=== PATIENT | male | born 1950 | race Caucasian/White ===

== ENCOUNTER 2016-07-30 09:20 | Day surgery (SDC) | payer BC ==
--- NOTE | 2016-07-27 13:11 | HISTORY AND PHYSICAL E ---
History and Physical NAME: OZZY PINEDA : 1950 AGE: 66Y ADMITTED: 07/30/2016 ROOM: CHIEF COMPLAINT: Colon screening, blood in the stool. HISTORY OF PRESENT ILLNESS: On review of records, I saw the patient in 1996, where he did have upper endoscopy. He did have mild esophageal stricture, esophagitis, duodenitis. He does have a small hiatal hernia. The patient did have a colonoscopy in 2001, which showed 2 mm polyp rectosigmoid junction and the polyp was a hyperplastic polyp. The patient did have another colonoscopy in 2003, which showed the following: Hemorrhoids, no malignancy. MEDICATIONS: 1. Prilosec. 2. Diltiazem. 3. Testosterone. FAMILY HISTORY: Father ; he was a smoker. The patient's mom had COPD, emphysema. REVIEW OF SYSTEMS: ENDOCRINE: Diabetes. CARDIAC: Hypertension. RESPIRATORY: COPD. GASTROINTESTINAL: Abdominal pain, blood in the stool, constipation, bloating. MUSCULOSKELETAL: Arthritis. PHYSICAL EXAMINATION: VITAL SIGNS: Blood pressure 130/80, pulse 80, respirations 20, temp i 98. HEAD, EYES, EARS, NOSE, THROAT: Normal. ABDOMEN: Soft. NEUROLOGIC: Exam negative. CONCLUSION: Colon screening. DICTATING PHYSICIAN: JEFFERSON TALLEY M.D. [id number] [facility]#: [id number] ID: [id number] JOB#: [id number] ACCT: [id number] cc:RANDI CHRISTINA M.D., MAHMOUD M.D. >
[~2016-07-30 09:20] MED LIST: EPINEPHRINE INJ 1 MG/10 ML DISP.SYRIN ONE; FLUMAZENIL INJ 0.5 MG/5 ML VIAL IV ONE; GLUCAGON,HUMAN RECOMB 1 MG INJ ONE; GLYCOPYRROLATE INJ 0.4 MG/2 ML VIAL ONE; LIDOCAINE 2% JELLY 30 ML TUBE ONE; NALOXONE HCL INJ/PF 0.4 MG/1 ML SDV ONE; ONDANSETRON HCL INJ/PF 4 MG/2 ML SDV ONE; PROMETHAZINE HCL INJ 25 MG/1 ML VIAL ONE
[2016-07-30] MEDS: MIDAZOLAM 2 MG/2 ML INJ ONE ×2 (10:20→10:30)
[2016-07-30] MEDS: FENTANYL CITRATE INJ/PF 100 MCG/2 ML AMPUL ONE ×2 (10:22→10:32)
[2016-07-30 11:46] LABS: ABSOLUTE EOSINOPHILS # (AUTO) 0.1 10^3/uL (0.0-0.6); ABSOLUTE LYMPHOCYTES (AUTO) 1.1 10^3/uL (0.5-4.7); ABSOLUTE MONOCYTES (AUTO) 0.6 10^3/uL (0.1-1.4); BASOPHILS % (AUTO) 0.5 % (0-2); EOSINOPHILS % (AUTO) 0.8 % (0-6); HEMATOCRIT 48.5 % (37.9-51.0); HGB HCT DIFFERENCE -0.5; LYMPHOCYTES % (AUTO) 12.3 % (13-45); MEAN CORPUSCULAR HEMOGLOBIN 28.6 pg (27.0-33.4); MEAN CORPUSCULAR HGB CONC 32.9 g/dL (32.0-36.0); MEAN CORPUSCULAR VOLUME 87 fl (80-97); MONOCYTES % (AUTO) 6.9 % (3-13); RED BLOOD COUNT 5.59 10^6/uL (4.35-5.55); RED CELL DISTRIBUTION WIDTH 13.8 % (11.5-14.0); SEGMENTED NEUTROPHILS % (AUTO) 79.5 % (42-78); WHITE BLOOD COUNT 8.8 10^3/uL (4.0-10.5)
[2016-07-30 11:50] VITALS: BP 125/66
--- NOTE | 2016-07-30 18:11 | OPERATIVE REPORT E ---
Operative Report NAME: OZZY PINEDA : 1950 AGE: 66Y DATE OF SURGERY: 07/30/2016 ROOM: PREOPERATIVE DIAGNOSIS: COLON SCREENING. POSTOPERATIVE DIAGNOSES: 1. EXTERNAL HEMORRHOID. 2. A 1 TO 2 MM ANAL POLYP. OPERATION: Colonoscopy. SURGEON: JEFFERSON TALLEY M.D. TISSUE REMOVED OR ALTERED: None. PROCEDURE: External hemorrhoids and 1 mm anal polyp small to biopsy. Sigmoid descending colon; normal. Transverse colon; normal. Ascending colon; normal. Cecum; normal. Scope withdrawn cecum, ascending, transverse, descending, sigmoid all the way to the rectum. CONCLUSIONS: 1. Colon screening. 2. External hemorrhoid. 3. Mild 1 mm diminutive polyp in the anorectal junction, small to biopsy. DISCHARGE PLAN: Soft diet. Hold aspirin 3 days. Baseline CBC. Consider followup colonoscopy 3 years. DICTATING PHYSICIAN: JEFFERSON TALLEY M.D. [id number] PHY#: [id number] ID: [id number] JOB#: [id number] ACCT: [id number] cc:RANDI CHRISTINA M.D., MAHMOUD M.D. >
--- NOTE | 2016-07-30 18:14 | DISCHARGE SUMMARY E ---
Discharge Summary NAME: OZZY PINEDA : 1950 AGE: 66Y ADMITTED: 07/30/2016 DISCHARGED: 07/30/2016 The patient is 66. He presented for colon screening. Today's colonoscopy shows external hemorrhoids and 2 mm diminutive anal polyp too small to biopsy. DISCHARGE PLAN: 1. Soft diet. 2. Hold aspirin for 3 days. 3. Baseline CBC. 4. Consider followup colonoscopy in 5 years. DICTATING PHYSICIAN: JEFFERSON TALLEY M.D. [id number] PHY#: [id number] ID: [id number] JOB#: [id number] ACCT: [id number] cc:JEFFERSON TALLEY M.D. >
== END 2016-07-30 11:50 | disposition home or self-care (01) ==
LOC: END 09:20
PROVIDERS: ATTEND Specialist
PROC: 0DJD8ZZ Inspection of Lower Intestinal Tract, Via Natural or Artificial Opening Endoscopic (ICD-10-PCS; principal; 2016-07-30 10:00)
DX: Z12.11 Encounter for screening for malignant neoplasm of colon (principal); K62.0 Anal polyp; K64.4 Residual hemorrhoidal skin tags; E11.9 Type 2 diabetes mellitus without complications; I10 Essential (primary) hypertension; J44.9 Chronic obstructive pulmonary disease, unspecified; M19.90 Unspecified osteoarthritis, unspecified site; Z79.899 Other long term (current) drug therapy
CPT/HCPCS: 45378; 36415; 85025; J2250; J3010; J1610; J2405; J0171; J2310; J2550; J3490

== ENCOUNTER → 2016-08-05 | Outpatient (CLI) | payer BC | LOC: OD 13:43 | PROVIDERS: ATTEND Specialist | DX: K90.0 Celiac disease (principal) | CPT/HCPCS: 36415; 83520 ==

== ENCOUNTER 2017-02-04 09:23 | Day surgery (SDC) | payer BC ==
--- NOTE | 2017-01-28 10:22 | HISTORY AND PHYSICAL E ---
History and Physical NAME: OZZY PINEDA : 1950 AGE: 66Y ADMITTED: 02/04/2017 ROOM: CHIEF COMPLAINT: Abdominal pain, hiatal hernia, reflux. HISTORY: Patient scheduled for 02/04 regarding upper endoscopy. The patient referred to us by [facility]. The patient is complaining of blood in the stool, abdominal pain, hemorrhoids. He did have upper scope in 1996, and colonoscope in 2000. His colonoscopy in 2016 showed external hemorrhoids, diminutive polyps. SOCIAL HISTORY: Quit smoking. He drinks 3 beers a day. PHYSICAL EXAMINATION: VITAL SIGNS: Blood pressure 130/80. ABDOMEN: Soft. CONCLUSION: 1. Gastroesophageal reflux. 2. Abdominal pain. 3. Serology for celiac was negative. PLAN: Upper endoscopy. Patient advised to stop using alcohol and beer, and patient scheduled for upper endoscopy. Scheduled for upper scope on 02/04. DICTATING PHYSICIAN: JEFFERSON TALLEY M.D. [id number] PHY#: [id number] ID: [id number] JOB#: [id number] ACCT: [id number] cc:RANDI CHRISTINA M.D., MAHMOUD M.D. >
[2017-02-04] MEDS ORDERED: NALOXONE HCL INJ/PF 0.4 MG/1 ML SDV ONE (10:24)
[2017-02-04] MEDS ORDERED: ONDANSETRON HCL INJ/PF 4 MG/2 ML SDV ONE (10:24)
[2017-02-04] MEDS ORDERED: GLYCOPYRROLATE INJ 0.4 MG/2 ML VIAL ONE (10:24)
[2017-02-04] MEDS ORDERED: MIDAZOLAM 2 MG/2 ML INJ ONE (10:25)
[2017-02-04] MEDS ORDERED: EPINEPHRINE INJ 1 MG/10 ML DISP.SYRIN ONE (10:26)
[2017-02-04] MEDS ORDERED: FLUMAZENIL INJ 0.5 MG/5 ML VIAL ONE (10:26)
[2017-02-04] MEDS: MIDAZOLAM 2 MG/2 ML INJ ONE ×2 (10:49→10:54)
[2017-02-04] MEDS: FENTANYL CITRATE INJ/PF 100 MCG/2 ML AMPUL ONE ×2 (10:51→10:56)
[2017-02-04 11:48] VITALS: BP 114/72
--- NOTE | 2017-02-04 12:09 | DISCHARGE SUMMARY E ---
Discharge Summary NAME: OZZY PINEDA : 1950 AGE: 66Y ADMITTED: 02/04/2017 DISCHARGED: 02/04/2017 PROCEDURE: EGD. HOSPITAL COURSE: The patient is 66 years old, presented with abdominal pain, underwent upper endoscopy today that shows no ulcers. He did have mild esophagitis, gastritis, duodenitis. H. pylori gastric biopsy obtained, results pending. Patient is allergic to PENICILLIN. The patient had recent colonoscopy in 2006 that shows diminutive polyps and hemorrhoids, external. He presented to us with abdominal pain. Serology for celiac disease negative. CONCLUSION: Upper endoscopy showing esophagitis, gastritis, duodenitis. I did not see definite hernia on today's exam. DISCHARGE PLAN: Continue Prilosec. Awaiting biopsy results. Followup office visit in the next few days. DICTATING PHYSICIAN: JEFFERSON TALLEY M.D. [id number] PHY#: [id number] ID: [id number] JOB#: [id number] ACCT: [id number] cc:RANDI CHRISTINA M.D., MAHMOUD M.D. >
--- NOTE | 2017-02-04 12:10 | OPERATIVE REPORT E ---
Operative Report NAME: OZZY PINEDA : 1950 AGE: 66Y DATE OF SURGERY: 02/04/2017 ROOM: PREOPERATIVE DIAGNOSIS: Abdominal pain and reflux. POSTOPERATIVE DIAGNOSES: 1. Esophagitis, mild. 2. Gastritis, mild. 3. Duodenitis, mild. PROCEDURE: Esophagoscopy, gastroscopy, duodenoscopy. SURGEON: JEFFERSON TALLEY M.D. ANESTHESIA: Versed 4 and Fentanyl 100 mcg. TISSUE REMOVED OR ALTERED: Gastric biopsy for H. pylori. DESCRIPTION OF PROCEDURE: The baby scope passed under guided vision, no difficulties. Esophagoscopy: Junction at 40. Gastroscopy: No ulcers. Diffuse gastritis. Biopsy obtained for H. pylori. Duodenoscopy: Duodenal bulb shows edematous folds consistent with duodenitis. CONCLUSIONS: 1. Patient did have esophagitis, gastritis, duodenitis. 2. Upper endoscopy shows no ulcers, no malignancy, no varices, no bleeding. PLAN: 1. Hold aspirin and nonsteroidals. 2. Continue PPI. 3. Patient to see us in the office in the next few days. DICTATING PHYSICIAN: JEFFERSON TALLEY M.D. [id number] [id number] PHY#: [id number] ID: [id number] JOB#: [id number] ACCT: [id number] cc:RANDI CHRISTINA M.D., MAHMOUD M.D. >
== END 2017-02-04 12:10 | disposition home or self-care (01) ==
LOC: END 09:23
PROVIDERS: ATTEND Specialist
PROC: 0DB68ZX Excision of Stomach, Via Natural or Artificial Opening Endoscopic, Diagnostic (ICD-10-PCS; principal; 2017-02-04 10:00)
DX: K20.9 Esophagitis, unspecified (principal); K29.80 Duodenitis without bleeding; K29.70 Gastritis, unspecified, without bleeding; Z88.0 Allergy status to penicillin; Z87.891 Personal history of nicotine dependence
CPT/HCPCS: 43239; 88305 ×2; J2250; J3010; J2405; J0171; J2310; J3490

== ENCOUNTER 2017-05-23 22:02 | Emergency (ER) | payer BC ==
[2017-05-24] MEDS ORDERED: DEXAMETHASONE SOD PHOS INJ 10 MG/1 ML VIAL IV ONE (00:51)
[2017-05-24] MEDS ORDERED: PROCHLORPERAZINE EDISYLATE INJ 10 MG/2 ML VIAL IV ONE (00:51)
[2017-05-24] MEDS ORDERED: DIPHENHYDRAMINE HCL 50 MG/ML VIAL IV ONE (00:51)
--- NOTE | 2017-05-24 00:51 | ER Document Report ---
ED General - General Chief Complaint: Headache Stated Complaint: HEADACHE Time Seen by Provider: 05/24/17 00:26 Notes: Patient is a 67-year-old male with a past medical history of hypertension, headaches, who presents with 3 days of intermittent headaches that have become progressively worse. Patient reports over the past 3 days he has had a dull, intermittent pain to the bilateral occipital and temporal scalp that is throbbing and moderate to severe in intensity. He notes that movement, light and sounds worsen the headache. He has tried Tylenol with no improvement of the pain. He states this is very similar to prior headaches he has had in the past. He has not seen his primary care doctor regarding today's concerns. He denies any associated fever, neck pain, altered mental status, weakness, numbness, vomiting, or recent head or neck trauma. No history of aneurysms. TRAVEL OUTSIDE OF THE [place] IN LAST 30 DAYS: No - Related Data Allergies/Adverse Reactions: Penicillins Allergy (Intermediate, Verified 05/23/17 22:03) NAUSEA, FLU LIKE SYMPTOMS aspirin Allergy (Verified 05/23/17 22:03) Past Medical History - General Information source: Patient - Social History Smoking Status: Former Smoker Frequency of alcohol use: None Drug Abuse: None Lives with: Spouse/Significant other Family History: Reviewed & Not Pertinent - Past Medical History Cardiac Medical History: Reports: Hx Hypertension - ON MEDS Denies: Hx Coronary Artery Disease, Hx Heart Attack Pulmonary Medical History: Reports: Hx Bronchitis, Hx COPD - HX SMOKING, QUIT SMOKING, Hx Pneumonia Denies: Hx Asthma Neurological Medical History: Denies: Hx Cerebrovascular Accident, Hx Seizures GI Medical History: Reports: Hx Gastroesophageal Reflux Disease Musculoskeltal Medical History: Reports Hx Arthritis - OSTEOARTHRITIS - Immunizations Hx Diphtheria, Pertussis, Tetanus Vaccination: No - CAN'T REMEMBER WHEN HE HAD HIS PNEUMONIA. Review of Systems - Review of Systems Notes: Constitutional: Negative for fever. HENT: Negative for sore throat. Eyes: Negative for visual changes. Cardiovascular: Negative for chest pain. Respiratory: Negative for shortness of breath. Gastrointestinal: Negative for abdominal pain, vomiting or diarrhea. Genitourinary: Negative for dysuria. Musculoskeletal: Negative for back pain. Skin: Negative for rash. Neurological: Positive for headaches 10 point ROS negative except as marked above and in HPI. Physical Exam - Vital signs Vitals: Temp Pulse Resp BP Pulse Ox 97.8 F 64 16 163/77 H 98 05/23/17 22:22 05/23/17 22:22 05/23/17 22:22 05/23/17 22:22 05/23/17 22:22 Interpretation: Normal Notes: PHYSICAL EXAMINATION: GENERAL: Well-appearing, well-nourished and in no acute distress. HEAD: Atraumatic, normocephalic. EYES: Pupils equal round and reactive to light, extraocular movements intact, sclera anicteric, conjunctiva are normal. ENT: nares patent, oropharynx clear without exudates. Moist mucous membranes. NECK: Normal range of motion, supple without lymphadenopathy LUNGS: Breath sounds clear to auscultation bilaterally and equal. No wheezes rales or rhonchi. HEART: Regular rate and rhythm without murmurs ABDOMEN: Soft, nontender, normoactive bowel sounds. No guarding, no rebound. No masses appreciated. EXTREMITIES: Normal range of motion, no pitting or edema. No cyanosis. NEUROLOGICAL: Face symmetric. Tongue protrudes midline. Extraocular motions intact. Pupils are 2 mm and equally reactive. Normal speech, normal gait. 5 out of 5 strength in both the distal and proximal upper and lower extremities bilaterally. Sensation is grossly intact throughout. Finger to nose testing normal. Pronator drift normal.. PSYCH: Normal mood, normal affect. SKIN: Warm, Dry, normal turgor, no rashes or lesions noted. Course - Re-evaluation Re-evalutation: 05/24/17 00:51 Presentation of a headache that appears to be most consistent with tension versus migrainous type headache. Headache was not maximal in onset, patient has no focal neurologic deficits, no nuchal rigidity, vital signs within normal limits, no papilledema, and patient is overall well in appearance. Based on clinical history and examination I do not suspect an acute subarachnoid hemorrhage, dural venous sinus thrombosis, acute meningitis, or intercranial mass. Given my low clinical suspicion for any acute life-threatening etiology, I do not feel advanced neuro imaging or laboratory testing is indicated at this time. Will proceed with headache cocktail and reassess. 05/24/17 02:28 Patient has had complete resolution of his headache. Neuro exam remains unremarkable. At this time will discharge with return precautions and follow- up recommendations. Verbal discharge instructions given a the bedside and opportunity for questions given. Medication warnings reviewed. Patient is in agreement with this plan and has verbalized understanding of return precautions and the need for primary care follow-up in the next 24-72 hours. - Vital Signs Vital signs: Temp Pulse Resp BP Pulse Ox 97.8 F 64 16 163/77 H 98 05/23/17 22:22 05/23/17 22:22 05/23/17 22:22 05/23/17 22:22 05/23/17 22:22 Discharge - Discharge Clinical Impression: Headache Qualifiers: Headache type: unspecified Headache chronicity pattern: acute headache Intractability: not intractable Qualified Code(s): R51 - Headache Condition: Good Disposition: HOME, SELF-CARE Additional Instructions: You have been seen in the Emergency Department (ED) for a headache. Please use Tylenol (acetaminophen) or Motrin (ibuprofen) as needed for symptoms, but only as written on the box. As we have discussed, please follow up with your primary care doctor as soon as possible regarding today's ED visit and your headache symptoms. Call your doctor or return to the ED if you have a worsening headache, sudden and severe headache, confusion, slurred speech, facial droop, weakness or numbness in any arm or leg, extreme fatigue, or other symptoms that concern you. Referrals: RANDI CHRISTINA MD [Primary Care Provider] - Follow up as needed
[2017-05-24 02:33] VITALS: BP 154/75
== END 2017-05-24 02:33 | disposition home or self-care (01) ==
LOC: ER 22:02
DX: R51 Headache (principal); I10 Essential (primary) hypertension; J44.9 Chronic obstructive pulmonary disease, unspecified; Z88.0 Allergy status to penicillin; Z88.6 Allergy status to analgesic agent; Z87.891 Personal history of nicotine dependence
CPT/HCPCS: 99284; 96374; 96375; J1200; J0780; J1100

== ENCOUNTER 2017-07-10 20:45 | Emergency (ER) | payer BC ==
[2017-07-10] MEDS ORDERED: IPRATROPIUM/ALBUTEROL 0.5-2.5 MG/3 ML AMPUL NEB ONE (22:14)
--- NOTE | 2017-07-10 22:20 | ER Document Report ---
ED Respiratory Problem - General Chief Complaint: Chest Tightness Stated Complaint: SHORTNESS OF BREATH Time Seen by Provider: 07/10/17 21:32 Mode of Arrival: Ambulatory Information source: Patient TRAVEL OUTSIDE OF THE [place] IN LAST 30 DAYS: No - HPI Patient complains to provider of: Short of breath Onset: Yesterday Duration: Intermittent episodes Initiating Event: URI - "BRONCHITIS" 1 WEEK AGO, FINISHED [id number] Quality of pain: Other - "TIGHTNESS, LIKE AIRWAYS ARE CONSTRICTED" Severity: Mild Context: Hx COPD Cough: Nonproductive At home treatment: Bronchodilators. denies: Inhaled steroids, Oral steroids, Oxygen Associated symptoms: Chills Similar symptoms previously: Yes - NOT RECENT Recently seen / treated by doctor: Yes - LAST WEEK - Related Data Allergies/Adverse Reactions: Penicillins Allergy (Intermediate, Verified 05/23/17 22:03) NAUSEA, FLU LIKE SYMPTOMS aspirin Allergy (Verified 05/23/17 22:03) Past Medical History - General Information source: Patient - Social History Smoking Status: Former Smoker Cigarette use (# per day): No Chew tobacco use (# tins/day): No Frequency of alcohol use: None Drug Abuse: None Lives with: Spouse/Significant other Family History: Reviewed & Not Pertinent Patient has suicidal ideation: No Patient has homicidal ideation: No - Past Medical History Cardiac Medical History: Reports: Hx Hypertension - ON MEDS Denies: Hx Coronary Artery Disease, Hx Heart Attack Pulmonary Medical History: Reports: Hx Bronchitis, Hx COPD - HX SMOKING, QUIT SMOKING, Hx Pneumonia Denies: Hx Asthma Neurological Medical History: Denies: Hx Cerebrovascular Accident, Hx Seizures Endocrine Medical History: Reports: None Renal/ Medical History: Reports: None. Denies: Hx Peritoneal Dialysis Malignancy Medical History: Reports None GI Medical History: Reports: Hx Gastroesophageal Reflux Disease Musculoskeltal Medical History: Reports Hx Arthritis - OSTEOARTHRITIS Psychiatric Medical History: Reports: None Surgical Hx: Negative - Immunizations Hx Diphtheria, Pertussis, Tetanus Vaccination: No - CAN'T REMEMBER WHEN HE HAD HIS PNEUMONIA. Review of Systems - Review of Systems Constitutional: Chills EENT: No symptoms reported Cardiovascular: No symptoms reported Respiratory: See HPI Gastrointestinal: No symptoms reported Genitourinary: No symptoms reported Musculoskeletal: Back pain - CHRONIC Skin: No symptoms reported Neurological/Psychological: No symptoms reported Physical Exam - Vital signs Vitals: Temp Pulse Resp BP Pulse Ox 98.0 F 82 18 154/85 H 96 07/10/17 21:01 07/10/17 21:01 07/10/17 21:01 07/10/17 21:01 07/10/17 21:01 Interpretation: Hypertensive. No: Tachycardic, Hypoxic, Tachypneic, Febrile - General General appearance: Appears well, Alert In distress: None - HEENT Head: Normocephalic Eyes: Normal Conjunctiva: Normal Ears: Normal Nasal: Normal Mouth/Lips: Normal Mucous membranes: Normal - Respiratory Respiratory status: No respiratory distress Breath sounds: Normal, Other - RARE INSP. CRACKLES IN DEPENDENT AREAS, CLEARED AFTER COUGHING. - Cardiovascular Rhythm: Regular Heart sounds: Normal auscultation Murmur: No - Abdominal Inspection: Normal Distension: No distension - Extremities General upper extremity: Normal inspection General lower extremity: Normal inspection. No: Edema - Neurological Neuro grossly intact: Yes Cognition: Normal Orientation: AAOx4 - Psychological Associated symptoms: Normal affect, Normal mood - Skin Skin Temperature: Warm Skin Moisture: Dry Skin Color: Normal Skin Turgor: Elastic Course - Vital Signs Vital signs: Temp Pulse Resp BP Pulse Ox 98.0 F 82 18 154/85 H 96 07/10/17 21:01 07/10/17 21:01 07/10/17 21:01 07/10/17 21:01 07/10/17 21:01 - Laboratory Result Diagrams: 07/10/17 22:20 07/10/17 22:20 Laboratory results interpreted by me: 07/10/17 07/10/17 22:20 22:20 RDW 14.5 H ALT 20 L - Diagnostic Test Radiology reviewed: Image reviewed, Reports reviewed - EKG Interpretation by Id EKG shows normal: Sinus rhythm, [place], Intervals, QRS Complexes, ST-T Waves Rate: Normal Rhythm: NSR Discharge - Discharge Clinical Impression: Bronchitis with bronchospasm Condition: Stable Disposition: HOME, SELF-CARE Instructions: Bronchitis With Bronchospasm (Wheezing) ([facility]), Inhaled Bronchodilators ([facility]), Corticosteroid Medication ([facility]) Additional Instructions: CONTINUE USING YOUR ALBUTEROL INHALER, 2 PUFFS EVERY 4-6 HOURS NEEDED. TAKE PREDNISONE DIRECTED, BEGINNING TOMORROW (TUESDAY). FOLLOW UP WITH YOUR PRIMARY CARE PROVIDER NEEDED. RETURN TO E.R. FOR RE-EVALUATION IF YOU GET WORSE, ANY TIME. Prescriptions: Prednisone [Deltasone 10 mg Tablet] 10 mg PO ASDIR PRN #21 tablet PRN Reason: Referrals: RANDI CHRISTINA MD [Primary Care Provider] - Follow up as needed
[2017-07-10 22:40] LABS: ABSOLUTE BASOPHILS # (AUTO) 0.1 10^3/uL (0.0-0.2); ABSOLUTE EOSINOPHILS # (AUTO) 0.1 10^3/uL (0.0-0.6); ABSOLUTE LYMPHOCYTES (AUTO) 1.5 10^3/uL (0.5-4.7); ABSOLUTE MONOCYTES (AUTO) 0.8 10^3/uL (0.1-1.4); ABSOLUTE NEUT (AUTO) 6.9 10^3/uL (1.7-8.2); BASOPHILS % (AUTO) 1.1 % (0-2); EOSINOPHILS % (AUTO) 1.2 % (0-6); HEMATOCRIT 43.4 % (37.9-51.0); HEMOGLOBIN 14.3 g/dL (13.5-17.0); MEAN CORPUSCULAR HEMOGLOBIN 28.3 pg (27.0-33.4); MEAN CORPUSCULAR VOLUME 86 fl (80-97); MONOCYTES % (AUTO) 8.6 % (3-13); PLATELET COUNT 254 10^3/uL (150-450); RED BLOOD COUNT 5.06 10^6/uL (4.35-5.55); RED CELL DISTRIBUTION WIDTH 14.5 % (11.5-14.0); SEGMENTED NEUTROPHILS % (AUTO) 73.1 % (42-78); TOTAL CELLS COUNTED % (AUTO) 100 %; WHITE BLOOD COUNT 9.5 10^3/uL (4.0-10.5)
[2017-07-10 22:49] LABS: ALANINE AMINOTRANSFERASE 20 U/L (21-72); ALBUMIN 4.1 g/dL (3.5-5.0); ALKALINE PHOSPHATASE 69 U/L (38-126); ANION GAP 12 (5-19); ASPARTATE AMINO TRANSFERASE 23 U/L (17-59); BILIRUBIN,DIRECT 0.3 mg/dL (0.0-0.4); BILIRUBIN,TOTAL 0.3 mg/dL (0.2-1.3); BLOOD UREA NITROGEN 20 mg/dL (7-20); CALCIUM 8.9 mg/dL (8.4-10.2); CARBON DIOXIDE 25 mmol/L (22-30); CHLORIDE 106 mmol/L (98-107); GLUCOSE 109 mg/dL (75-110); POTASSIUM 3.8 mmol/L (3.6-5.0); SODIUM 142.7 mmol/L (137-145); TOTAL PROTEIN 6.8 g/dL (6.3-8.2)
--- NOTE | 2017-07-10 23:26 | RADIOLOGY REPORT (SQ) ---
EXAM DESCRIPTION: CHEST PA/LAT COMPLETED DATE/TIME: 07/10/2017 10:58 pm REASON FOR STUDY: DYSPNEA COMPARISON: 01/22/2014 EXAM PARAMETERS: NUMBER OF VIEWS: two views TECHNIQUE: Digital Frontal and Lateral radiographic views of the chest acquired. RADIATION DOSE: NA LIMITATIONS: none FINDINGS: LUNGS AND PLEURA: No consolidation, masses or pneumothorax. Similar chronic interstitial markings. No pleural effusion. MEDIASTINUM AND HILAR STRUCTURES: Stable. HEART AND VASCULAR STRUCTURES: Heart normal size. No evidence for failure. BONES: No acute findings. HARDWARE: None in the chest. OTHER: No other significant finding. IMPRESSION: No acute findings. TECHNICAL DOCUMENTATION: JOB ID: [id number] [id number] 2010 [employer]- All Rights Reserved
[2017-07-11] MEDS ORDERED: DEXAMETHASONE 4 MG TABLET PO ONE (00:03)
[2017-07-11 00:43] VITALS: BP 147/83
--- NOTE | 2017-07-11 01:32 | EKG REPORT ---
SEVERITY:- NORMAL ECG - SINUS RHYTHM : Confirmed by: Olivia Mark MD 11-Jul-2017 01:31:12
--- NOTE | 2017-07-14 10:46 | EKG REPORT ---
SEVERITY:- NORMAL ECG - SINUS RHYTHM : Confirmed on behalf of: Clay Cook MD 14-Jul-2017 10:45:25
== END 2017-07-11 00:43 | disposition home or self-care (01) ==
LOC: ER 20:45
DX: J20.9 Acute bronchitis, unspecified (principal); R07.9 Chest pain, unspecified; J44.9 Chronic obstructive pulmonary disease, unspecified; R68.83 Chills (without fever); Z88.0 Allergy status to penicillin; Z88.6 Allergy status to analgesic agent; I10 Essential (primary) hypertension
CPT/HCPCS: 94640; 99285; 36415; 85025; 80053; 71046; 93005; J7620; 93010

== ENCOUNTER → 2018-05-12 | Outpatient (CLI) | payer BC ==
--- NOTE | 2018-05-12 16:54 | RADIOLOGY REPORT (SQ) ---
EXAM DESCRIPTION: CT CHEST WITHOUT COMPLETED DATE/TIME: 05/12/2018 3:13 pm REASON FOR STUDY: J44.9 CHRONIC OBSTRUCTIVE PULMONARY DISEASE, UNSPECIFIED Z72.0 TOBACCO USE J44.9 CHRONIC OBSTRUCTIVE PULMONARY DISEASE, UNSPECIFIED COMPARISON: Chest films 07/10/2017, 01/22/2014 TECHNIQUE: CT scan performed of the chest without intravenous contrast. Images reviewed with lung, soft tissue and bone windows. Reconstructed coronal and sagittal MPR images reviewed. All images st ored on PACS. All CT scanners at this facility use dose modulation, iterative reconstruction, and/or weight based d osing when appropriate to reduce radiation dose to as low as reasonably achievable (ALARA). [facility]: Dose Right [facility]: CareDose [facility]: Dose Right [facility]: Teradose 4D [facility]: Guang Lian Shi Dai RADIATION DOSE: CT Rad equipment meets quality standard of care and radiation dose reduction techniq ues were employed. CTDIvol: 12.3 mGy. DLP: 492 mGy-cm. mGy. LIMITATIONS: No technical limitations. FINDINGS: LUNGS AND PLEURA: No acute infiltrates. No worrisome pulmonary nodules. No significant i nterstitial lung disease. Scattered less than 4 mm subpleural noncalcified granulomas bilaterally, b enign. No pleural effusions. No pneumothorax. No pleural calcifications. HILAR AND MEDIASTINAL STRUCTURES: No identified masses or abnormal nodes. No obvious aneurysm. HEART AND VASCULAR STRUCTURES: No cardiomegaly. Calcified mitral annulus. Mild coronary artery calc ifications UPPER ABDOMEN: No significant findings. Limited exam. THYROID AND OTHER SOFT TISSUES: No masses. No adenopathy. BONES: Degenerative disc changes mid and lower thoracic spine HARDWARE: None in the chest. OTHER: No other significant findings. IMPRESSION: NO SIGNIFICANT FINDING ON NON-CONTRASTED CHEST CT. TECHNICAL DOCUMENTATION: JOB ID: [id number] Quality ID # [id number]: Final reports with documentation of one or more dose reduction techniques (e.g., Au tomated exposure control, adjustment of the mA and/or kV according to patient size, use of iterative reconstruction technique) 2010 [employer]- All Rights Reserved Reading location - IP/workstation name: [email or web address]
== END ==
LOC: RAD 15:41
PROVIDERS: ATTEND Family Medicine
DX: J44.9 Chronic obstructive pulmonary disease, unspecified (principal); Z72.0 Tobacco use
CPT/HCPCS: 71250